=== PATIENT | male | born 1945 | race Caucasian/White ===

== ENCOUNTER 2021-05-25 07:39 | Emergency (ER) | payer MEDICARE, MEDICAID ==
[~2021-05-25] VITALS: Ht 177.8 cm; Wt 90.5 kg
[~2021-05-25 07:39] MED LIST: ALBU8HFA IH; DOCU250C14 PO; EZET10TA57 PO; IBUP-2070 PO; LITH600C PO; SIMV80TA2 PO; TAMS-13 PO; VALS80TA2 PO
[2021-05-25] MEDS ORDERED: ACETAMINOPHEN 500 MG TABLET PO ONE (08:00)
[2021-05-25] MEDS ORDERED: HYDR50TA46 PO (09:15)
[2021-05-25 09:45] VITALS: BP 12/55
[2021-05-25 09:56] LABS: GLUCOMETER DEV NAME(LOC) ERT.5; GLUCOSE,POINT OF CARE 103 MG/DL (70-110)
== END 2021-05-25 11:23 | disposition home or self-care (01) ==
LOC: EMS 07:42
DX: M13.861 Other specified arthritis, right knee (principal); W06.XXXA Fall from bed, initial encounter; Y93.89 Activity, other specified; Y92.89 Other specified places as the place of occurrence of the external cause; Y99.8 Other external cause status
CPT/HCPCS: 70450; 72125; 82962; 99284

== ENCOUNTER 2021-07-29 09:54 | Emergency (ER) | payer MEDICARE, MEDICAID ==
[~2021-07-29] VITALS: Ht 175.3 cm; Wt 90.5 kg
[~2021-07-29 09:54] MED LIST changes: +HYDR50TA46 PO
[2021-07-29 10:17] VITALS: BP 140/74
== END 2021-07-29 11:57 | disposition home or self-care (01) ==
LOC: EMS 09:57
DX: K40.90 Unilateral inguinal hernia, without obstruction or gangrene, not specified as recurrent (principal); I48.91 Unspecified atrial fibrillation; F41.9 Anxiety disorder, unspecified; F31.9 Bipolar disorder, unspecified; E11.9 Type 2 diabetes mellitus without complications; I10 Essential (primary) hypertension
CPT/HCPCS: 99283

== ENCOUNTER 2021-08-16 22:06 | Emergency (ER) | payer MEDICARE, MEDICAID ==
[~2021-08-16] VITALS: Ht 167.6 cm; Wt 90.3 kg
[2021-08-17] MEDS ORDERED: ACETAMINOPHEN/CODEINE 300-30 MG TABLET PO ONE (00:45)
[2021-08-17 01:48] VITALS: BP 107/61
== END 2021-08-17 01:58 | disposition home or self-care (01) ==
LOC: EMS 22:10
DX: M17.11 Unilateral primary osteoarthritis, right knee (principal); I48.91 Unspecified atrial fibrillation; F41.9 Anxiety disorder, unspecified; F31.9 Bipolar disorder, unspecified; E11.9 Type 2 diabetes mellitus without complications; E78.00 Pure hypercholesterolemia, unspecified; I10 Essential (primary) hypertension; Z88.6 Allergy status to analgesic agent; Z91.013 Allergy to seafood
CPT/HCPCS: 99283

== ENCOUNTER 2021-09-12 22:13 | Emergency (ER) | payer MEDICARE, MEDICAID ==
[~2021-09-12] VITALS: Ht 175.3 cm; Wt 90.5 kg
[2021-09-12] MEDS ORDERED: TAMS-13 PO (23:19)
[2021-09-12 23:59] VITALS: BP 138/72
== END 2021-09-13 02:13 | disposition home or self-care (01) ==
LOC: EMS 22:23
DX: R33.9 Retention of urine, unspecified (principal); I48.91 Unspecified atrial fibrillation; F41.9 Anxiety disorder, unspecified; F31.9 Bipolar disorder, unspecified; E11.9 Type 2 diabetes mellitus without complications; E78.00 Pure hypercholesterolemia, unspecified; I10 Essential (primary) hypertension; Z88.6 Allergy status to analgesic agent; Z91.013 Allergy to seafood
CPT/HCPCS: 51702; 99284; Z7502

== ENCOUNTER 2021-09-16 15:44 | Emergency (ER) | payer MEDICARE, MEDICAID ==
[~2021-09-16] VITALS: Ht 175.3 cm; Wt 90.5 kg
[2021-09-16 16:47] VITALS: BP 137/78
== END 2021-09-16 17:24 | disposition home or self-care (01) ==
LOC: EMS 15:44
DX: K40.90 Unilateral inguinal hernia, without obstruction or gangrene, not specified as recurrent (principal); G89.29 Other chronic pain; I48.91 Unspecified atrial fibrillation; F41.9 Anxiety disorder, unspecified; F31.9 Bipolar disorder, unspecified; E11.9 Type 2 diabetes mellitus without complications; E78.00 Pure hypercholesterolemia, unspecified; I10 Essential (primary) hypertension; Z98.890 Other specified postprocedural states; Z88.8 Allergy status to other drugs, medicaments and biological substances; Z91.013 Allergy to seafood; Z46.6 Encounter for fitting and adjustment of urinary device
CPT/HCPCS: 99281; Z7502